=== PATIENT | female | born 1940 | race Caucasian/White ===

== ENCOUNTER 2017-01-01 16:15 | Emergency (ER) | payer MEDICARE ==
[2017-01-01 16:24] VITALS: TEMP 36.6; Ht 144.8 cm
[2017-01-01] MEDS ORDERED: ISOS30TA3 PO (16:51)
[2017-01-01] MEDS ORDERED: OMEG10007 PO (16:51)
[2017-01-01] MEDS ORDERED: ASPI81TA28 PO (16:51)
[2017-01-01] MEDS ORDERED: CLOP1TAB15 PO (16:51)
[2017-01-01] MEDS ORDERED: COEN75CA PO (16:51)
[2017-01-01] MEDS ORDERED: LISI-461 PO (16:51)
[2017-01-01] MEDS ORDERED: METO25TA3 PO (16:51)
[2017-01-01] MEDS ORDERED: ATOR-22 PO (16:51)
[2017-01-01] MEDS ORDERED: METO-217 PO (16:51)
[2017-01-01 17:06] VITALS: BP 119/59; PULSE 64; O2SAT 96
--- NOTE | 2017-01-01 22:31 | EMERGENCY ROOM VISIT NOTE ---
History Report prepared by Rebekah: Javier Gomez Under the Supervision of: Dr. Rico Cortez M.D. First contact with patient: 16:32 Chief Complaint: RECTAL BLEEDING Stated Complaint: RECTAL BLEEDING- HEMORRHOID History of Present Illness The patient is a 76 year old female who presents to the Emergency Room with complaints of constant hemorrhoidal bleeding beginning 2.5 hours ago. She has a history of hemorrhoids and believes that it is the hemorrhoids that are bleeding. Her bleeding began spontaneously while she was sitting. The patient is on Plavix for heart disease and five cardiac stents. She denies any rectal pain, abdominal pain, lightheadedness, or weakness. She notes that she has been sitting and inactive most of the day today. Source of History: patient Onset: 2.5 hours ago Position: other (rectum) Quality: other (bleeding) Timing: constant Associated Symptoms: No abdominal pain, No weakness Note: The patient denies any lightheadedness or rectal pain. Review of Systems See HPI for pertinent positives & negatives. A total of 10 systems reviewed and were otherwise negative. Past Medical & Surgical Medical Problems: (1) Heart disease Surgical Problems: (1) H/O heart artery stent Family History No pertinent family history stated. Social History Smoking Status: Former Smoker Current/Historical Medications Scheduled Aspirin (Aspirin Ec), 81 MG PO DAILY Atorvastatin (Lipitor), 20 MG PO DAILY Clopidogrel (Plavix), 75 MG PO DAILY Fish Oil ([place]-3), 1 CAP PO QPM Isosorbide Mononitrate Ext Rel (Imdur Ext Rel), 30 MG PO QAM Lisinopril (Zestril), 10 MG PO QAM Metoprolol Succinate (Toprol Xl), 25 MG PO DAILY Metoprolol Succinate (Toprol Xl), 50 MG PO DAILY Miscellaneous Medications Coenzyme Q10 (Ubidecarenone) (Co Q-10), 1 CAP PO Allergies Coded Allergies: No Known Allergies (Unverified , 01/01/17) Physical Exam Vital Signs Date Time Temp Pulse Resp B/P Pulse Ox O2 Delivery O2 Flow Rate FiO2 01/01/17 17:06 64 18 119/59 96 01/01/17 16:24 36.6 72 20 113/64 96 Room Air Physical Exam Constitutional: Vital signs reviewed. Eyes: Pupils are equal round reactive to light. Conjunctiva are noninjected. ENT: Pharynx is clear without erythema or exudate. Mucous membranes are moist. Neck supple without meningeal signs. Respiratory: Clear to auscultation bilaterally. Breath sounds are equal bilaterally. Cardiovascular: Regular rate and rhythm. No rubs or gallops. GI: Soft, nondistended and nontender. Bowel sounds are present. Rectal: Multiple large external hemorrhoids. Non-thrombosed with no active bleeding. Musculoskeletal: No peripheral edema. Integumentary: No cyanosis. Neurological: The patient is awake and alert. No focal deficits. Psychiatric: Normal affect. Medical Decision & Procedures ED Course 163: The patient was evaluated in room C10. A complete history and physical exam was performed. 1649: I discussed tonight's findings with the patient. She verbalized agreement of the treatment plan. The patient was discharged home. Medical Decision This is a 76-year-old female presents with hemorrhoidal bleeding. I did perform a limited focused review of portions of the patient's old chart on the electronic medical record. The patient has had no prior visits to this hospital. I did evaluate patient as noted above. She does have multiple external hemorrhoids but without any thrombosis or any active bleeding. 2 of the large hemorrhoids appear to be the source of her bleeding. I did pack the wound with Surgicel. She was advised to use stool softeners and follow up with a surgeon in her hometown for discussion of possible hemorrhoidectomy. She is on Plavix because of multiple cardiac stents. She was discharged in good condition and told to return for any worsening of her symptoms or any other concerns. Impression Primary Impression: Bleeding external hemorrhoids Scribe Attestation The scribe's documentation has been prepared under my direct and personally reviewed by me in its entirety. I confirm that the note above accurately reflects all work, treatment, procedures, and medical decision making performed by me. Departure Information Dispostion Home / Self-Care Referrals No Doctor, Assigned (PCP) Forms HOME CARE DOCUMENTATION FORM, IMPORTANT VISIT INFORMATION, WORK / SCHOOL INSTRUCTIONS Patient Instructions ED Hemorrhoids, My [facility] Additional Instructions You have been examined and treated today on an emergency basis only. This is not a substitute for, or an effort to provide, complete comprehensive medical care. It is impossible to recognize and treat all injuries or illnesses in a single emergency department visit. It is therefore important that you follow up closely with your physician and the general surgeon to talk about hemorrhoidectomy. Call as soon as possible for an appointment. Return for worsening symptoms or if you develop severe pain, lightheadedness or any other concerning symptoms.
== END 2017-01-01 17:07 | disposition home or self-care (01) ==
LOC: C.EDB 16:18 → C.EDC 17:07
DX: K64.4 Residual hemorrhoidal skin tags (principal); Z79.01 Long term (current) use of anticoagulants; Z95.5 Presence of coronary angioplasty implant and graft; Z87.891 Personal history of nicotine dependence; Z79.82 Long term (current) use of aspirin; Z79.899 Other long term (current) drug therapy